=== PATIENT | female | born 1965 | race American Indian/Alaskan Native ===

== ENCOUNTER 2017-02-18 17:03 | Emergency (ER) | payer OTHER ==
[~2017-02-18] VITALS: Ht 154.9 cm; Wt 75.8 kg
[~2017-02-18 17:03] MED LIST: ALBUTEROL2.5 MG/0.5 INH; ATIVAN0.5 MG PO; BACTRIM DS TAB1 EACH PO; BENADRYL25 MG PO; COLACE100 MG PO; DEXAMETHASONE 22 M1 PO; FENTANYL PA50 MCG/HR TRANSDERM; FISH OIL 1,001000 M2 PO; FLEXERIL PO; GABAPENTIN 100100 MG PO; LEXAPRO 10 MG T10 M1 PO; LISINOPRIL20 MG PO; LISINOPRIL5 MG PO; MEDROLDOSEPACK PO; MIRALAX17 GM PO; MOBIC15 MG PO; MS CONTIN 30 MG30 M1 PO; NABUMETONE 750750 M1 PO; NEURONTIN 400400 M1 PO; NORCO 10-325 T1 EACH PO; NORCO 5-325 TA1 EACH PO; NORVASC 5 MG TAB5 MG PO; OMEPRAZOLE 20 M20 M1 PO; OMEPRAZOLE20 M2 PO; OXYGEN MISCELL; PERCOCET 10-321 EACH PO; PERCOCET 5-3251 EACH PO; PHENERGAN 25 MG25 M1 PO; WELLBUTRIN 100100 M1 NG; ZANAFLEX4 MG PO; ZOCOR 10 MG TAB10 MG; ZOCOR20 MG PO; ZOFRAN ODT4 MG PO
[2017-02-18] MEDS ORDERED: MIRALAX17 GM PO (18:10)
[2017-02-18] MEDS ORDERED: SENNA S TABLET1 EACH PO (18:10)
== END 2017-02-18 18:38 | disposition home or self-care (01) ==
LOC: ER 17:03
DX: R10.30 Lower abdominal pain, unspecified (principal); K59.00 Constipation, unspecified

== ENCOUNTER → 2017-09-19 | Outpatient (CLI) | payer OTHER ==
[~2017-09-19] MED LIST changes: +SENNA S TABLET1 EACH PO
== END ==
LOC: RAD 12:12
DX: M25.562 Pain in left knee (principal); M00.862 Arthritis due to other bacteria, left knee